=== PATIENT | female | born 1990 | race Caucasian/White ===

== ENCOUNTER 2019-07-22 14:06 | Emergency (ER) | payer OTHER ==
[~2019-07-22] VITALS: Ht 172.7 cm; Wt 81.6 kg
[2019-07-22 16:25] VITALS: BP 127/87; TEMP 98.1
== END 2019-07-22 16:25 | disposition home or self-care (01) ==
LOC: ED 14:06
DX: N73.9 Female pelvic inflammatory disease, unspecified (principal)
CPT/HCPCS: 81000; 81025; 87210; 96372; 99284; J0696

== ENCOUNTER 2019-11-05 09:42 | Emergency (ER) | payer OTHER ==
[~2019-11-05] VITALS: Ht 172.7 cm; Wt 86.2 kg
[2019-11-05 11:08] LABS: PLATELET COUNT 341 K/uL (152-353)
[2019-11-05 11:12] LABS: POTASSIUM 4.2 mmol/L (3.6-5.2)
[2019-11-05 12:36] VITALS: BP 116/81
[2019-11-05 12:50] VITALS: TEMP 97.7
== END 2019-11-05 12:50 | disposition home or self-care (01) ==
LOC: ED 09:42
PROVIDERS: Family Medicine
DX: K52.89 Other specified noninfective gastroenteritis and colitis (principal); E86.0 Dehydration; R11.2 Nausea with vomiting, unspecified; Z33.1 Pregnant state, incidental
CPT/HCPCS: 36415; 80053; 81000; 81025; 85027; 96360; 96375; 99284; J2405

== ENCOUNTER 2021-01-08 12:04 | Emergency (ER) | payer OTHER ==
[~2021-01-08] VITALS: Ht 172.7 cm; Wt 86.2 kg
[2021-01-08 12:10] VITALS: BP 129/88; TEMP 98.2
== END 2021-01-08 13:22 | disposition home or self-care (01) ==
LOC: ED 12:04
PROC: 2W3QX1Z Immobilization of Right Lower Leg using Splint (ICD-10-PCS; principal; 2021-01-08)
DX: S93.491A Sprain of other ligament of right ankle, initial encounter (principal); W17.2XXA Fall into hole, initial encounter; Y92.89 Other specified places as the place of occurrence of the external cause
CPT/HCPCS: 99283

== ENCOUNTER 2022-11-25 21:07 | Emergency (ER) | payer OTHER ==
[~2022-11-25] VITALS: Ht 172.7 cm; Wt 74.8 kg
[2022-11-26 00:15] VITALS: BP 119/83; TEMP 98.7
== END 2022-11-26 00:15 | disposition home or self-care (01) ==
LOC: ED 21:07
PROC: 2W3LX1Z Immobilization of Right Lower Extremity using Splint (ICD-10-PCS; principal; 2022-11-25)
DX: M25.461 Effusion, right knee (principal); S96.811A Strain of other specified muscles and tendons at ankle and foot level, right foot, initial encounter; S82.444A Nondisplaced spiral fracture of shaft of right fibula, initial encounter for closed fracture; W01.0XXA Fall on same level from slipping, tripping and stumbling without subsequent striking against object, initial encounter; Y92.096 Garden or yard of other non-institutional residence as the place of occurrence of the external cause
CPT/HCPCS: 96372; 99283; J1885; J2930

== ENCOUNTER 2023-02-03 14:47 | Emergency (ER) | payer OTHER ==
[~2023-02-03] VITALS: Ht 172.7 cm; Wt 83.9 kg
[2023-02-03 14:51] VITALS: TEMP 99
[2023-02-03 16:03] VITALS: BP 128/69
== END 2023-02-03 16:04 | disposition home or self-care (01) ==
LOC: ED 14:47
DX: S40.011A Contusion of right shoulder, initial encounter (principal); X58.XXXA Exposure to other specified factors, initial encounter
CPT/HCPCS: 96372; 99283; J1885